=== PATIENT | female | born 2000 | race African-American/Black ===

== ENCOUNTER 2021-02-18 13:58 | Emergency (ER) | payer BC ==
[~2021-02-18] VITALS: Ht 152.4 cm; Wt 63.0 kg
[2021-02-18] MEDS ORDERED: SODIUM CHLORIDE 0.9% 1,000 ML IV ONE (15:15)
[2021-02-18] MEDS ORDERED: ACETAMINOPHEN 325MG TABLET PO ONE (15:15)
[2021-02-18 15:39] LABS: BASOPHILS % 0.6 % (0.0-2.0); EOSINOPHILS % 3.3 % (0.0-5.0); HEMATOCRIT. 31.5 % (36.0-48.0); LYMPHOCYTES % 30.7 % (20.0-50.0); MEAN CORPUSCULAR HEMOGLOBIN 27.6 pg (28.0-32.0); MEAN PLATELET VOLUME 8.2 fl (7.4-10.4); MONOCYTES % 11.8 % (2.0-8.0); NEUTROPHILS % 53.6 % (40.0-76.0); PLATELET 281 x1000/uL (130-400); RED BLOOD CELL COUNT 3.99 mill/uL (4.2-5.4)
[2021-02-18 15:47] LABS: CHLORIDE 110 mEq/L (98-107)
[2021-02-18 16:26] LABS: HCG SCREEN NEGATIVE
[2021-02-18 18:31] VITALS: BP 125/74
== END 2021-02-18 18:52 | disposition home or self-care (01) ==
LOC: ER 14:06
DX: R07.89 Other chest pain (principal); F41.9 Anxiety disorder, unspecified; J45.909 Unspecified asthma, uncomplicated
CPT/HCPCS: 36415; 71045; 71275; 80053; 81025; 84703; 85025; 85379; 93005; 96360; 99285; J7030; Z7610